=== PATIENT | female | born 1945 | race Caucasian/White ===

== ENCOUNTER → 2017-03-29 | Outpatient (CLI) | payer MEDICARE ==
[~2017-03-29] MED LIST: ACTOS15 MG PO; AMBIEN CR 6.26.25 MG PO; ASPIRIN325 PO; AVALIDE 300-121 EACH PO; AVAPRO300 MG PO; CARVEDILOL12.5 MG PO; CELEBREX 200 M200 MG PO; CELEXA 10 MG TA10 MG PO; CLEOCIN T60 GM TP; COENZYME Q10200 M2 PO; COMBIVENT RESPIM4 GM IH; COREG6.25 MG PO; CRESTOR20 MG PO; CYMBALTA60 MG PO; EFFIENT10 MG PO; FISH OIL 1,0001 EAC5 PO; JANUMET 50-1,01 EACH PO; LORTAB 5-500 T1 EAC1 PO; RETIN-A15 GM TP; SINGULAIR 10 MG10 M1 PO; TRAMADOL 50 MG50 MG PO; TRICOR145 MG PO; VITAMIN D3400 UNIT PO; VITAMINC500 PO; ZOLOFT100 MG PO
== END ==
LOC: RAD 13:51
DX: Z12.31 Encounter for screening mammogram for malignant neoplasm of breast (principal)

== ENCOUNTER → 2018-03-29 | Outpatient (CLI) | payer MEDICARE | LOC: NUC 10:26 | DX: I25.10 Atherosclerotic heart disease of native coronary artery without angina pectoris (principal) ==

== ENCOUNTER → 2018-05-02 | Outpatient (CLI) | payer MEDICARE | LOC: RAD 13:18 | DX: Z12.31 Encounter for screening mammogram for malignant neoplasm of breast (principal) ==

== ENCOUNTER → 2019-05-10 | Outpatient (CLI) | payer MEDICARE | LOC: RAD 13:53 | DX: Z12.31 Encounter for screening mammogram for malignant neoplasm of breast (principal) ==

== ENCOUNTER → 2019-10-16 | Outpatient (CLI) | payer MEDICARE | LOC: SJCVCIMAG 09:08 | DX: I25.810 Atherosclerosis of coronary artery bypass graft(s) without angina pectoris (principal); I10 Essential (primary) hypertension; E78.5 Hyperlipidemia, unspecified; E78.00 Pure hypercholesterolemia, unspecified; R60.9 Edema, unspecified; Z95.1 Presence of aortocoronary bypass graft; Z98.61 Coronary angioplasty status; Z79.82 Long term (current) use of aspirin; Z79.899 Other long term (current) drug therapy ==

== ENCOUNTER → 2020-01-31 | Outpatient (CLI) | payer MEDICARE | LOC: SJCVC 14:01 | PROVIDERS: ATTEND Internal Medicine Cardiovascular Disease | DX: I25.10 Atherosclerotic heart disease of native coronary artery without angina pectoris (principal); I10 Essential (primary) hypertension; E78.00 Pure hypercholesterolemia, unspecified; K21.9 Gastro-esophageal reflux disease without esophagitis; E78.5 Hyperlipidemia, unspecified; Z95.1 Presence of aortocoronary bypass graft ==

== ENCOUNTER → 2020-05-11 | Outpatient (CLI) | payer MEDICARE | LOC: RAD 14:49 | PROVIDERS: ATTEND Obstetrics & Gynecology | DX: Z12.31 Encounter for screening mammogram for malignant neoplasm of breast (principal) ==

== ENCOUNTER → 2020-09-24 | Outpatient (CLI) | payer MEDICARE | LOC: SJCVC 14:25 | PROVIDERS: ATTEND Internal Medicine Cardiovascular Disease | DX: I49.1 Atrial premature depolarization (principal); I25.10 Atherosclerotic heart disease of native coronary artery without angina pectoris; I10 Essential (primary) hypertension; E78.00 Pure hypercholesterolemia, unspecified; R60.9 Edema, unspecified; G89.29 Other chronic pain; E11.9 Type 2 diabetes mellitus without complications; Z98.890 Other specified postprocedural states; Z95.1 Presence of aortocoronary bypass graft; Z98.61 Coronary angioplasty status; Z88.8 Allergy status to other drugs, medicaments and biological substances; Z79.82 Long term (current) use of aspirin; Z79.899 Other long term (current) drug therapy ==

== ENCOUNTER 2021-03-15 13:09 | Emergency (ER) | payer MEDICARE ==
[~2021-03-15] VITALS: Ht 154.9 cm; Wt 79.4 kg
[2021-03-15 14:16] LABS: ABSOLUTE NEUTROPHILS 6.6 thou/uL (1.4-8.2); BASOPHILS 0.7 % (0.0-2.0); HEMATOCRIT 30.5 % (37.0-47.0); HEMOGLOBIN 9.5 gm/dL (12.0-15.0); LYMPHOCYTES 14.3 % (24.0-44.0); MCH 24.5 pg (26.0-34.0); MCV 79.1 fL (80.0-100.0); MONOCYTES 9.7 % (1.0-8.0); PLATELET COUNT 287 thou/uL (150-400); POLYS 73.3 % (36.0-66.0); RBC 3.86 mil/uL (4.20-5.00); RDW 18.8 % (10.5-14.5)
[2021-03-15 14:37] LABS: CALCIUM 8.9 mg/dL (8.5-10.1); CREATININE 1.1 mg/dL (0.6-1.0)
[2021-03-15 14:42] VITALS: BP 93/56
[2021-03-15 14:46] LABS: ALBUMIN 2.5 g/dL (3.4-5.0); TOTAL BILIRUBIN 0.4 mg/dL (0.2-1.0); TOTAL PROTEIN 6.7 g/dL (6.4-8.2)
[2021-03-15 14:47] LABS: POTASSIUM 5.1 mmol/L (3.5-5.1)
--- NOTE | 2021-03-15 15:38 | EKG ---
[address] [place] [employer] [place] [address] ELECTROCARDIOGRAM REPORT Name: MILAGROS ALBRIGHTLYN Kimber [id number] Admission: 03/15/21 Attend Phys: Discharge: Date of : 49 Report #: [id number] [facility] ED Test Date: 2021-03-15 Test Time: 14:20:49 Pat Name: FORTUNATO ALBRIGHT Department: Room: Gender: F Business Intelligence Developer: MICHELLE : 1945 Requested By: Dada Muniz Order Number: [id number] MD: Mahendra Walters Measurements Intervals [place] Rate: 83 P: 15 [place]: 132 QRS: -2 QRSD: 86 T: 35 QT: 395 QTc: 465 Interpretive Statements Sinus rhythm Inferior infarct, old Compared to ECG 05/03/2016 06:42:28 Myocardial infarct finding now present Prolonged QT interval no longer present Electronically Signed On 03-15-2021 15:38:00 CDT by Mahendra Walters [email or web address] <ELECTRONICALLY SIGNED> By: Mahendra Walters MD, [facility] 03/15/21 1538 1420 1420 Mahendra Walters MD, FACC /EPI
== END 2021-03-15 16:03 | disposition home or self-care (01) ==
LOC: ER 13:09
PROVIDERS: Emergency Medicine
DX: R60.0 Localized edema (principal); E88.09 Other disorders of plasma-protein metabolism, not elsewhere classified; K21.9 Gastro-esophageal reflux disease without esophagitis; I10 Essential (primary) hypertension; E78.5 Hyperlipidemia, unspecified; E11.40 Type 2 diabetes mellitus with diabetic neuropathy, unspecified; M19.90 Unspecified osteoarthritis, unspecified site; Z86.718 Personal history of other venous thrombosis and embolism; Z90.49 Acquired absence of other specified parts of digestive tract; Z90.89 Acquired absence of other organs; Z95.1 Presence of aortocoronary bypass graft; Z98.890 Other specified postprocedural states; Z79.82 Long term (current) use of aspirin; Z79.891 Long term (current) use of opiate analgesic; Z79.1 Long term (current) use of non-steroidal anti-inflammatories (NSAID); Z79.899 Other long term (current) drug therapy; Z88.6 Allergy status to analgesic agent; Z88.5 Allergy status to narcotic agent; Z88.8 Allergy status to other drugs, medicaments and biological substances; Z91.018 Allergy to other foods; Z91.048 Other nonmedicinal substance allergy status; Z91.09 Other allergy status, other than to drugs and biological substances

== ENCOUNTER → 2021-03-24 | Outpatient (CLI) | payer MEDICARE | LOC: SJCVCIMAG 08:26 | PROVIDERS: ATTEND Internal Medicine Cardiovascular Disease | DX: R94.31 Abnormal electrocardiogram [ECG] [EKG] (principal); I07.1 Rheumatic tricuspid insufficiency; I25.10 Atherosclerotic heart disease of native coronary artery without angina pectoris; E78.00 Pure hypercholesterolemia, unspecified; R60.9 Edema, unspecified; E11.9 Type 2 diabetes mellitus without complications; E78.5 Hyperlipidemia, unspecified; M54.50 Low back pain, unspecified; G89.29 Other chronic pain; I10 Essential (primary) hypertension; Z95.1 Presence of aortocoronary bypass graft; Z88.8 Allergy status to other drugs, medicaments and biological substances; Z79.82 Long term (current) use of aspirin; Z79.899 Other long term (current) drug therapy ==

== ENCOUNTER → 2021-04-19 | Outpatient (CLI) | payer MEDICARE | LOC: SJCVC 14:46 | PROVIDERS: ATTEND Internal Medicine Cardiovascular Disease | DX: R60.9 Edema, unspecified (principal); M54.50 Low back pain, unspecified; G89.29 Other chronic pain; I25.10 Atherosclerotic heart disease of native coronary artery without angina pectoris; E78.5 Hyperlipidemia, unspecified; I10 Essential (primary) hypertension; E11.9 Type 2 diabetes mellitus without complications ==